=== PATIENT | male | born 1970 | race American Indian/Alaskan Native ===

== ENCOUNTER 2018-05-25 17:06 | Emergency (ER) | payer OTHER ==
--- NOTE | 2018-05-25 17:18 | Emergency Department Report ---
Blank Doc - Documentation Documentation: This is a 47-year-old male that presents with acute headache. Hx of HTN. Exam: neuro exam within normal limits. no facial drooping. normal strength. This initial assessment/diagnostic orders/clinical plan/treatment(s) is/are subject to change based on patient's health status, clinical progression and re- assessment by fellow clinical providers in the ED. Further treatment and workup at subsequent clinical providers discretion. Patient/guardians urged not to elope from the ED as their condition may be serious if not clinically assessed and managed. Initial orders include: 1- Patient sent to [facility] for further evaluation and treatment 2- CT head
--- NOTE | 2018-05-25 18:15 | Cat Scan Report ---
PROCEDURE: CT HEAD/BRAIN WO CON TECHNIQUE: CT head without contrast HISTORY: headache COMPARISONS: FINDINGS: No acute intra or intra-axial hemorrhage identified. No evidence for midline shift or mass effect. Ve ntricles and sulci are within normal limits. Bryant-white matter differentiation is intact. Visualized portions of the paranasal sinuses and mastoids are unremarkable. IMPRESSION: Normal CT head. This document is electronically signed by Harish Day MD., May 25 2018 06:13:01 PM ET
[2018-05-25 19:43] VITALS: BP 152/114
[2018-05-25] MEDS ORDERED: IBUPROFEN PO ONE (19:54)
--- NOTE | 2018-05-25 20:09 | Emergency Department Report ---
ED Headache HPI - General Chief Complaint: Headache Stated Complaint: FEVER/HEADACHE/RT SIDE HEAD SORE Time Seen by Provider: 05/25/18 17:15 Source: patient - History of Present Illness Timing/Duration: other (2 days) Quality: mild Head Injury Location: parietal (right) Recent Head Trauma: no recent headache/trauma Modifying Factors: worse with: cold therapy, immobilization, medication, movement Associated Symptoms: denies symptoms Allergies/Adverse Reactions: Allergies No Known Allergies Allergy (Unverified 05/25/18 17:08) Home Medications: Ambulatory Orders amLODIPine [Norvasc] 5 mg PO DAILY #45 tab 05/25/18 ED Review of Systems ROS: Stated complaint: FEVER/HEADACHE/RT SIDE HEAD SORE Other details as noted in HPI Comment: All other systems reviewed and negative Neurological: headache ED Past Medical Hx - Past Medical History Previous Medical History?: Yes Hx Hypertension: Yes - Surgical History Past Surgical History?: No - Social History Smoking Status: Never Smoker Substance Use Type: None - Medications Home Medications: Home Medications Medication Instructions Recorded Confirmed Last Taken Type amLODIPine [Norvasc] 5 mg PO DAILY #45 tab 05/25/18 Unknown Rx ED Physical Exam - General Limitations: No Limitations General appearance: alert, in no apparent distress - Head Head exam: Present: atraumatic, normocephalic - Eye Eye exam: Present: normal appearance, EOMI - ENT ENT exam: Present: mucous membranes moist - Neck Neck exam: Present: normal inspection, full ROM - Respiratory Respiratory exam: Present: normal lung sounds bilaterally. Absent: respiratory distress - Cardiovascular Cardiovascular Exam: Present: regular rate, normal rhythm. Absent: systolic murmur, diastolic murmur, rubs, gallop - GI/Abdominal GI/Abdominal exam: Present: soft, normal bowel sounds - Extremities Exam Extremities exam: Present: normal inspection, full ROM - Back Exam Back exam: Present: normal inspection, full ROM - Expanded Neurological Exam Expanded Patient oriented to: Present: person, place, time Cranial nerves: EOM's Intact: Normal, Gag Reflex: Normal, Tongue Deviation: Normal, Nystagmus: Normal, Facial Sensation: Normal, Facial Palsy with Forehead Movement: Normal, Facial Palsy without Forehead Movement: Normal Cerebellar function: Finger to Nose: Normal, Heel to Diaz: Normal, Romberg: Normal Upper motor neuron: Vitaly Neglect: Normal, Pronator Drift: Normal, Sensory Extinction: Normal Sensory exam: Upper Extremity Light Touch: Normal, Upper Extremity Pin Prick: Normal, Upper Extremity Temperature: Normal, UE 2 Point Discrimination: Normal, Lower Extremity Light Touch: Normal, Lower Extremity Pin Prick: Normal Motor strength exam: RUE: 5, LUE: 5, RLE: 5, LLE: 5 Best Eye Response ([place]): (4) open spontaneously Best Motor Response ([place]): (6) obeys commands Best Verbal Response ([place]): (5) oriented [place] Total: 15 - Psychiatric Psychiatric exam: Present: normal affect, normal mood - Skin Skin exam: Present: warm, dry, intact, normal color. Absent: rash ED Course Vital Signs 05/25/18 05/25/18 17:17 19:42 Temperature 99.3 F 99.3 F Pulse Rate 100 H 99 H Respiratory 16 16 Rate Blood Pressure 170/109 152/114 [Left] O2 Sat by Pulse 96 96 Oximetry ED Medical Decision Making - Radiology Data Radiology results: report reviewed Patient: TRICIA LAURENT MR#: [id number] : 1970 Acct:[id number] Age/Sex: 47 / M ADM Date: 05/25/18 Loc: ED Attending Dr: Ordering Physician: ANGI HOFF NP Date of Service: 05/25/18 Procedure(s): CT head/brain wo con Accession Number(s): [id number] cc: ANGI HOFF NP PROCEDURE: CT HEAD/BRAIN WO CON TECHNIQUE: CT head without contrast HISTORY: headache COMPARISONS: FINDINGS: No acute intra or intra-axial hemorrhage identified. No evidence for midline shift or mass effect. Ventricles and sulci are within normal limits. Bryant-white matter differentiation is intact. Visualized portions of the paranasal sinuses and mastoids are unremarkable. IMPRESSION: Normal CT head. This document is electronically signed by Harish Calderon MD., May 25 2018 06:13:01 PM ET Transcribed By: GALLO Dictated By: JUAN CARLOS CALDERON MD Electronically Authenticated By: JUAN CARLOS CALDERON MD Signed Date/Time: 05/25/181814 DD/ 04 TD/TT: 05/25/181806 - Medical Decision Making Patient has been evaluated by this provider in [facility]. CT of brain and head shows normal examination. Patient was given ibuprofen 800 mg for pain management. Patient noted the patient has an elevated blood pressure of 170/109 and is only on hydrochlorothiazide. I will add amlodipine 5 mg daily. Discussed the patient is to follow-up to have [facility] If blood pressure is still elevated he needs to follow-up with his primary care provider for medication adjustment. Verbalized understanding Critical care attestation.: If time is entered above; I have spent that time in minutes in the direct care of this critically ill patient, excluding procedure time. ED Disposition Clinical Impression: Headache Qualifiers: Headache type: unspecified Headache chronicity pattern: acute headache Intract ability: intractable Qualified Code(s): R51 - Headache HTN (hypertension) Qualifiers: Hypertension type: unspecified Qualified Code(s): I10 - Essential (primary) hypertension Disposition: DC-01 TO HOME OR SELFCARE Is pt being admited?: No Does the pt Need Aspirin: No Condition: Stable Instructions: Hypertension (ED) Additional Instructions: Please take blood pressure medication as prescribed. I would like for you to take one amlodipine with your hydrochlorothiazide check your blood pressure is your readings deal greater than 150/90 to increase her amlodipine to 2 tablets daily and to follow up with [facility] your primary care provider. Please watch your sodium intake as this can increase her blood pressure and cause headaches. You can try taking Tylenol or Motrin for pain management. CT of her head was negative. Prescriptions: amLODIPine [Norvasc] 5 mg PO DAILY #45 tab Referrals: RAMIREZ OLSON MD [Primary Care Provider] - 3-5 Days [facility] [Provider Group] - 3-5 Days Forms: Work/School Release Form(ED), Accompanied Note
== END 2018-05-25 20:20 | disposition home or self-care (01) ==
LOC: ED 17:06
DX: R51 Headache (principal); R50.9 Fever, unspecified; I10 Essential (primary) hypertension
CPT/HCPCS: 70450